=== PATIENT | male | born 1970 | race African-American/Black ===

== ENCOUNTER 2018-12-20 08:49 | Emergency (ER) | payer OTHER ==
[~2018-12-20] VITALS: Ht 167.6 cm; Wt 104.3 kg
[2018-12-20] MEDS ORDERED: LASIX20 MG (08:59)
[2018-12-20] MEDS ORDERED: NORVASC10 MG (08:59)
== END 2018-12-20 10:41 | disposition home or self-care (01) ==
LOC: ER 08:49
DX: H92.01 Otalgia, right ear (principal)

== ENCOUNTER → 2020-05-21 15:00 | Outpatient (CLI) | payer OTHER ==
[~2020-05-21 15:00] MED LIST: LASIX20 MG; NORVASC10 MG
== END | disposition home or self-care (01) ==
LOC: PPH VACUNA 15:00
DX: Z23 Encounter for immunization (principal)

== ENCOUNTER → 2020-06-11 08:23 | Outpatient (CLI) | payer OTHER | END | disposition home or self-care (01) | LOC: PPH VACUNA 08:23 | DX: Z23 Encounter for immunization (principal) ==